=== PATIENT | female | born 1975 | race Caucasian/White ===

== ENCOUNTER 2022-12-10 16:20 | Emergency (ER) | payer SELFPAY ==
--- OUTSIDE RECORDS SUMMARY | 2022-12-10 16:23 | XMS REPORT | Continuity of Care Document ---
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 mmol/L 136.0-145.0 N Potassium,K (test code = K) 3.6 mmol/L 3.0-5.1 N Chloride (test code = CL) 110 mmol/L 98-107 H Carbon Dioxide (test code = CO2) 25 mmol/L 20-31 N Anion Gap (test code = GAP) 7 mmol/L 5-15 N Blood Urea Nitrogen (test code = 12 mg/dL 9-23 N BUN) Creatinine (test code = CREATT) 0.87 mg/dL 0.55-1.02 N Creatinine Clr Calc Pharmacy 92.23 mL/min (test code = CRCLPHA) Estimated GFR ( Vanessa > 60 mL/min/1.73m2 (test code = EGFRAA) Estimated GFR (Non Afr Vanessa > 60 mL/min/1.73m2 (test code = EGFRNAA) BUN/Creatinine Ratio (test code 14 ratio 10-20 N = BCRATIO) Glucose (test code = GLU) 108 mg/dL 74-106 H Osmolality,Calculated (test code 294.2 = OSMOC) Calcium (test code = CA) 9.0 mg/dL 8.3-10.6 N Bilirubin,Total (test code = 0.4 mg/dL 0.2-1.1 N BILIT) Aspartate Amino Transferase 75 U/L 0-34 H (test code = AST) Alanine Aminotransferase (test 61 U/L 10-49 H code = ALT) Total Protein (test code = TP) 8.7 g/dL 5.7-8.2 H Albumin Level (test code = ALB) 5.4 g/dL 3.2-4.8 H Globulin (test code = GLOB) 3.3 mg/dL 2.3-3.5 N Albumin/Globulin Ratio (test 1.6 ratio 0.8-2.0 N code = AGRATIO) Alkaline Phosphatase (test code 68 U/L 46-116 N = ALP) Ethanol [id number] 21:06:00 Test Item Value Reference Range Interpretation Comments Ethanol (test code 160 mg/dL The pharm acological = ETOH) response to blo od alcohol levels mayvary from individual to i ndividual. The fatal vimal ntrationhas been reported t o be >400mg/dL. Sars-CoV-2/FLU A/B RSV [id number] 21:06:00 Test Item Value Reference Range Interpretation Comments Sars-CoV-2/FLU A/B For use under Emergency RSV PCR (test code = Use Authorization (EUA) SARSFLURSVPCR) only. Sars-CoV-2/FLU A/B Reference Range: RSV PCR (test code = Negative SARSFLURSVPCR1.1) Influenza A PCR: Negative by Nucleic Acid (test code = Amplification Influenza A PCR:) Influenza B PCR: Negative by Nucleic Acid (test code = Amplification Influenza B PCR:) RSV PCR Result: (test Negative by Nucleic Acid code = RSV PCR Amplification Result:) SARS-CoV-2 PCR Negative by RT-PCR Result: (test code = SARS-CoV-2 PCR Result:) Complete Blood Count Auto [id number] 21:06:00 Test Item Value Reference Range Interpretation Comments White Blood Count (test code = 5.4 x10 3/uL 4.4-10.5 N WBCT) Red Blood Count (test code = 5.05 x10 6/uL 3.75-5.20 N RBC) Hemoglobin (test code = HGBT) 15.8 g/dL 12.2-14.8 H Hematocrit (test code = HCTT) 48.6 % 36.5-44.4 H Mean Corpuscular Volume (test 96.20 fL 80.00-100.00 N code = MCV) Mean Corpuscular Hemoglobin 31.3 pg 27.0-32.5 N (test code = MCH) Mean Corpuscular HGB Conc 32.50 g/dL 32.00-37.50 N (test code = MCHC) RDW Coefficient of Variation 15.9 % 11.5-14.5 H (test code = RDWCV) Platelet Count (test code = 178.0 x10 3/uL 140.0-440.0 N PLTT) Mean Platelet Volume (test 9.4 fL code = MPV) Immature Granulocytes % (Auto) 0.2 % 0.0-5.0 N (test code = IMMGRAN%) Neutrophils % (Auto) (test 63.7 % 36.0-70.0 N code = NE%) Lymphocytes % (Auto) (test 24.4 % 12.0-44.0 N code = LY%) Monocytes % (Auto) (test code 7.5 % 0.0-11.0 N = MO%) Eosinophils % (Auto) (test 3.3 % 0.0-7.0 N code = EO%) Basophils % (Auto) (test code 0.9 % 0.0-2.0 N = BA%) Immature Granulocytes # (Auto) 0.01 x10 3/uL (test code = IMMGRAN#) Neutrophils # (Auto) (test 3.5 x10 3/uL 1.6-7.4 N code = NE#) Lymphocytes # (Auto) (test 1.33 x10 3/uL 0.50-4.60 N code = LY#) Monocytes # (Auto) (test code 0.41 x10 3/uL 0.00-1.20 N = MO#) Eosinophils # (Auto) (test 0.18 x10 3/uL 0.00-0.74 N code = EO#) Basophils # (Auto) (test code 0.05 x10 3/uL 0.00-0.21 N = BA#) nRBC Abs (test code = NRBCA) 0 nRBC Pct (test code = NRBCP) 0 % SARS-CoV-2 (COVID-19) RNA [Presence] in Respiratory specimen by CHEMO with probe [id number] 20:33:59 Test Item Value Reference Range Interpretation Comments SARS-CoV-2 (COVID-19) RNA Not detected Not-Detected [Presence] in Respiratory specimen by CHEMO with probe detection (test code = 92201-4) Whether patient is employed in a healthcare setting (test code = 59533-2) Whether the patient has symptoms related to condition of interest (test code = 79798-0) Patient was hospitalized because of this condition (test code = 70712-1) Whether the patient was admitted to intensive care unit (ICU) for condition of interest (test code = 24736-2) Whether patient resides in a congregate care setting (test code = 14712-5) [facility] coronavirus 2 RNA [Presence] in Respiratory specimen by CHEMO with probe [id number] 03:54:38 Test Item Value Reference Range Interpretation Comments SARS coronavirus 2 RNA Not detected Not-Detected [Presence] in Respiratory specimen by CHEMO with probe detection (test code = 05873-2) [facility]
--- NOTE | 2022-12-10 17:32 | RAD REPORT ---
EXAM DESCRIPTION: RAD - Tib Fib Left - 12/10/2022 5:26 pm CLINICAL HISTORY: open wound Pain and swelling COMPARISON: No comparisons FINDINGS: No fracture, dislocation or evidence of osteomyelitis. No soft tissue gas is seen.
[2022-12-10] MEDS ORDERED: HYDROCODONE/APAP 7.5/325 MG TAB ONE (17:51)
[2022-12-10] MEDS ORDERED: IBUPROFEN 400 MG TAB ONE (17:51)
[2022-12-10] MEDS ORDERED: LIDOCAINE 1% W/EPI 1:100,000 30 ML VIAL ONE (18:45)
[2022-12-10] MEDS ORDERED: BUPIVACAINE 0.5% PF 10 ML VIAL ONE (18:45)
[2022-12-10] MEDS ORDERED: LIDOCAINE HCL JELLY 2% 6 ML SYRINGE TOP ONE (18:46)
--- NOTE | 2022-12-10 19:37 | ER ---
Nurse's Notes [facility] Name: Letty Sosa Age: 47 yrs Sex: Female : 1975 Arrival Date: 12/10/2022 Time: 16:22 Bed 18 Private MD: Diagnosis: Unspecified open wound, left lower leg;Local infection of the skin and subcutaneous tissue, unspecified-left lower leg Presentation: 12/10 16:31 Chief complaint: Patient states: "I have a wound on my left leg. Went to the hospital a mb9 month ago and got started on antibiotics and not on them anymore. Yesterday it started having an order and it hurts really bad". Coronavirus screen: Vaccine status: Patient reports receiving the 2nd dose of the covid vaccine. Ebola Screen: No symptoms or risks identified at this time. Initial Sepsis Screen: Does the patient meet any 2 criteria? No. Patient's initial sepsis screen is negative. Does the patient have a suspected source of infection? Yes: Skin breakdown/wound. Risk Assessment: Do you want to hurt yourself or someone else? Patient reports no desire to harm self or others. Onset of symptoms was November 12, 2022. 16:31 Method Of Arrival: Ambulatory mb9 16:31 Acuity: EMY 3 mb9 Triage Assessment: 16:38 General: Appears in no apparent distress. Behavior is calm, cooperative, appropriate mb9 for age. Pain: Complains of pain in left leg. Cardiovascular: Patient's skin is warm and dry. Respiratory: Airway is patent Respiratory effort is even, unlabored, Respiratory pattern is regular, symmetrical. Derm: Wound noted left vazquez Wound is foul odor, red and swollen. Musculoskeletal: Range of motion: intact in all extremities. Historical: - Allergies: 16:33 Benadryl; mb9 - Home Meds: 16:33 Abilify oral [Active]; sertraline oral [Active]; topiramate oral [Active]; Buspirone mb9 Oral [Active]; - PMHx: 16:33 Anxiety; Depressive disorder; mb9 - PSHx: 16:33 section; mb9 - Immunization history:: Adult Immunizations up to date. - Social history:: Smoking status: Patient reports the use of cigarette tobacco products, smokes one pack cigarettes per day. Screenin:[facility] ED Fall Risk Assessment (Adult) History of falling in the last 3 months, kc6 including since admission No falls in past 3 months (0 pts) Confusion or Disorientation No (0 pts) Intoxicated or Sedated No (0 pts) Impaired Gait No (0 pts) Mobility Assist Device Used No (0 pt) Altered Elimination No (0 pt) Score/Fall Risk Level 0 - 2 = Low Risk Oriented to surroundings, Maintained a safe environment, Educated pt \\T\\ family on fall prevention, incl call for assistance when getting out of bed, Assessed \\T\\ reinforced patient's understanding of fall precautions, Hourly rounding (assess needs \\T\\ fall precautionary measures) done. Abuse screen: Denies threats or abuse. Denies injuries from another. Nutritional screening: No deficits noted. Tuberculosis screening: No symptoms or risk factors identified. Assessment: 17:56 General: Appears in no apparent distress. comfortable, Behavior is calm, cooperative, kc6 appropriate for age. Neuro: Rayo Agitation-Sedation Scale (RASS): 0 - Alert and Calm Level of Consciousness is awake, alert, obeys commands, Oriented to person, place, time, situation, Appropriate for age. Cardiovascular: Capillary refill < 3 seconds. Respiratory: Airway is patent Trachea midline Respiratory effort is even, unlabored, Respiratory pattern is regular, symmetrical. GI: No signs and/or symptoms were reported involving the gastrointestinal system. : No signs and/or symptoms were reported regarding the genitourinary system. EENT: No signs and/or symptoms were reported regarding the EENT system. Derm: Skin is pink, warm \\T\\ dry. Wound noted left leg Wound is appears to be open with black scabbing. erythema and some swelling appears to be present. no drainage. Musculoskeletal: No signs and/or symptoms reported regarding the musculoskeletal system. Circulation, motion, and sensation intact. Capillary refill < 3 seconds, Range of motion: intact in all extremities. 18:50 Reassessment: Patient appears in no apparent distress at this time. No changes from kc6 previously documented assessment. Patient and/or family updated on plan of care and expected duration. Pain level reassessed. Patient is alert, oriented x 3, equal unlabored respirations, skin warm/dry/pink. Vital Signs: 16:31 BP 136 / 106; Pulse 79; Resp 18; Temp 98.1; Pulse Ox 100% ; Weight 70.76 kg; Height 5 mb9 ft. 11 in. ; Pain 6/10; 17:58 BP 136 / 76; Pulse 71; Resp 18 S; Pulse Ox 99% on R/A; kc6 18:51 BP 125 / 79; Pulse 74; Resp 18 S; Pulse Ox 100% on R/A; kc6 16:31 Body Mass Index 21.76 (70.76 kg, 180.34 cm) mb9 16:31 Pain Scale: Adult mb9 ED Course: 16:22 Patient arrived in ED. rg4 16:24 Bipin Chahal PA is PHCP. jmm 16:24 Blake Chin MD is Attending Physician. m 16:25 PHCP role handed off by Bipin Chahal PA cp 16:25 Mario Arce PA is PHCP. cp 16:33 Triage completed. mb9 16:37 Arm band placed on. mb9 17:28 XRAY Tib Fib LEFT In Process Unspecified. EDMS 17:45 Bhumi Mota, JOSE C is Primary Nurse. kc6 17:56 Wound Culture Sent. kc6 17:58 Patient has correct armband on for positive identification. Bed in low position. Call kc6 light in reach. Side rails up X 1. Administered Medications: 17:56 Drug: Ibuprofen PO 800 mg Route: PO; kc6 18:45 Follow up: Response: No adverse reaction kc6 17:56 Drug: Hydrocodone-Acetaminophen PO (7.5 mg-325 mg) 1 tabs Route: PO; kc6 18:45 Follow up: Response: No adverse reaction; Pain is decreased; RASS: Alert and Calm (0) kc6 18:45 Drug: Lidocaine Mucous Membrane Gel 2 % 1 ea Volume: 15 ml; Route: Mucous Membrane; kc6 19:12 Drug: Lidocaine-Epinephrine Infiltration -1%: (1:100,000) 10 ml {Note: Administered by jb4 ER provider.} Volume: 20 ml; Route: Infiltration; 19:12 Drug: Bupivacaine Infiltration (0.5 %) 10 ml {Note: Administered by ER provider.} jb4 Volume: 10 ml; Route: Infiltration; Outcome: 19:37 Discharge ordered by . cp Signatures: Dispatcher [employer] EDMS Bipin Chahal PA PA jmm Page, Corey, PA PA cp Laith, Sabra rg4 Erickson Stratton RN RN jb4 Bhumi Mota RN RN kc6 Lizzie Tao RN RN mb9 Corrections: (The following items were deleted from the chart) 16:37 16:33 [place] Meds: librium; mb9 mb9
--- NOTE | 2022-12-10 19:37 | EDPHYS ---
Physician Documentation [facility] Name: Letty Sosa Age: 47 yrs Sex: Female : 1975 Arrival Date: 12/10/2022 Time: 16:22 Bed 18 Private MD: ED Physician Blake Chin Historical: - Allergies: 12/10 16:33 Benadryl; mb9 - Home Meds: 16:33 Abilify oral [Active]; sertraline oral [Active]; topiramate oral [Active]; Buspirone mb9 Oral [Active]; - PMHx: 16:33 Anxiety; Depressive disorder; mb9 - PSHx: 16:33 section; mb9 - Immunization history:: Adult Immunizations up to date. - Social history:: Smoking status: Patient reports the use of cigarette tobacco products, smokes one pack cigarettes per day. Vital Signs: 16:31 BP 136 / 106; Pulse 79; Resp 18; Temp 98.1; Pulse Ox 100% ; Weight 70.76 kg; Height 5 mb9 ft. 11 in. ; Pain 6/10; 17:58 BP 136 / 76; Pulse 71; Resp 18 S; Pulse Ox 99% on R/A; kc6 18:51 BP 125 / 79; Pulse 74; Resp 18 S; Pulse Ox 100% on R/A; kc6 16:31 Body Mass Index 21.76 (70.76 kg, 180.34 cm) mb9 16:31 Pain Scale: Adult mb9 MDM: 16:39 Patient medically screened. 12/10 16:41 Order name: XRAY Tib Fib LEFT; Complete Time: 17:37 cp 12/10 17:37 Interpretation: Report reviewed. 12/10 16:41 Order name: Wound Culture 12/10 18:07 Order name: I\T\D Setup; Complete Time: 18:10 cp Administered Medications: 17:56 Drug: Ibuprofen PO 800 mg Route: PO; kc6 18:45 Follow up: Response: No adverse reaction [facility] 17:56 Drug: Hydrocodone-Acetaminophen PO (7.5 mg-325 mg) 1 tabs Route: PO; 6 18:45 Follow up: Response: No adverse reaction; Pain is decreased; RASS: Alert and Calm (0) kc6 18:45 Drug: Lidocaine Mucous Membrane Gel 2 % 1 ea Volume: 15 ml; Route: Mucous Membrane; kc6 19:12 Drug: Lidocaine-Epinephrine Infiltration -1%: (1:100,000) 10 ml {Note: Administered by jb4 ER provider.} Volume: 20 ml; Route: Infiltration; 19:12 Drug: Bupivacaine Infiltration (0.5 %) 10 ml {Note: Administered by ER provider.} jb4 Volume: 10 ml; Route: Infiltration; Disposition Summary: 12/10/22 19:37 Discharge Ordered Location: Home cp Problem: an ongoing problem cp Symptoms: have improved cp Condition: Stable cp Diagnosis - Unspecified open wound, left lower leg cp - Local infection of the skin and subcutaneous tissue, unspecified - left lower leg cp Forms: - Medication Reconciliation Form cp - Thank You Letter cp - Antibiotic Education cp - Prescription Opioid Use cp Signatures: Dispatcher [employer] EDMS Mario Arce PA PA cp Erickson Stratton RN RN jb4 Bhumi Mota RN RN kc6 Lizzie Tao RN RN mb9 Corrections: (The following items were deleted from the chart) 16:37 16:33 Home Meds: librium; mb9 mb9
[2022-12-10] MEDS ORDERED: DOXYCYCLINE 100 MG CAP PO ONE (19:49)
[2022-12-10] MEDS ORDERED: SMZ./TMP. 800/160 MG TABLET ONE (19:49)
[2022-12-11 03:32] VITALS: BP 136/106; TEMP 98.1; O2SAT 100
== END 2022-12-10 20:10 | disposition home or self-care (01) ==
LOC: ER 16:20
DX: S81.802A Unspecified open wound, left lower leg, initial encounter (principal); L08.9 Local infection of the skin and subcutaneous tissue, unspecified
CPT/HCPCS: 87070; 87205

== ENCOUNTER 2022-12-12 10:35 | Emergency (ER) | payer SELFPAY ==
--- OUTSIDE RECORDS SUMMARY | 2022-12-12 10:39 | XMS REPORT | Continuity of Care Document ---
:1975 Author Organization [facility] t Address [address] [place] [address] [address] [place] [address] Care Team Providers Name Role Phone Jorgito Moody DO Primary Care Physician [phone] Yanira Reddy RN Attending Clinician Unavailable Vane Angela DO Attending Clinician Jim RN, Glenda Attending Clinician Unavailable Maksim JONES, Anupam Attending Clinician Deidra JONES, Dede Livingston Attending Clinician Iam Berry MD, Tita Attending Clinician [phone] Tony JONES, Usha Brown Attending Clinician Vega JOENS, Charo Attending Clinician Ashish JONES, Larissa Matt Attending Clinician Lili JONES, Darrel Clancy Attending Clinician [phone] Saturnino JONES, Jennifer Attending Clinician Mannie Chavez DO Attending Clinician JORGITO ROBERTS Attending Clinician Unavailable DO VANE ANGELA Attending Clinician Unavailable VICENTE AN Attending Clinician Unavailable CHARO RUSSELL Attending Clinician Unavailable KATHY SELLERS Attending Clinician Unavailable ERNESTO WELCH Attending Clinician Unavailable IRLANDA JOHNSTON Attending Clinician Unavailable USHA JIMENEZ Admitting Clinician Unavailable LARISSA FRAZIER Admitting [...] Disease Active C [facility], [facility] Med[facility] l right right 00 Center Allergies, Adverse Reactions, Alerts Allergy Allergy Status Severity Reaction(s) Onset Inactive Treating Comm ents Source Name Type Date Date Clinician diphenhy DA Active U Unknown [facility]m dramine 10-27 00:00: 00 Diphenhy Propensi Active [...] Date Stop Date Source Natural brother Anesthesia [facility] Natural father [facility] Maternal grandfather Cancer [facility] Maternal grandmother Cancer [facility] Natural mother Cancer [facility] Paternal grandfather Cancer [facility] Social History Social Habit Start Date Stop Date Quantity Comments Source History of tobacco Cigarette Smoker [facility] use Hospital History [facility]aoism Alcohol Std Drinks Hospit al History [facility] Alcohol Binge Hospital Alcohol intake 2022-11-08 2022-11-08 Current drinker [facility] dist 00:00:00 00:00:00 of [facility] (finding) Tobacco use and 2022-06-24 2022-06-24 Smokeless tobacco [facility] exposure 00:00:00 00:00:00 non-user Hospital Cigarettes smoked 2022-06-24 2022-06-[address] current (pack per 00:00:00 00:00:00 Hospita l day) - Reported Cigarette 2022-06-24 2022-06-24 [facility] pack-years 00:00:00 00:00:00 Hospital Alcohol Comment 2019-07-31 2019-07-31 2 pints vodka per [facility] 00:00:00 00:00:00 day Hospital History SDOH 2018-09-13 2018-09-13 1 [facility] Alcohol Frequency 00:00:00 00:00:00 Hospita l Sex Ass[birth year] At [birth year] [facility] 00:00:00 00:00:00 Hospital Smoking Status Start Date Stop Date Source Smokes tobacco daily 2022-06-24 00:00:00 [facility] Medications Ordered Filled Start Stop Current Ordering Indication Dosage Frequency Signature Comments Components Source Medication Medication Date Date Medication? Clinician (SIG) Name Name traZODone 2022-0 3- No 50mg QD Take 1 Metho di (DESYREL) 11-10 tablet (50 st 50 MG 17:40: 00:00 mg total) Hospit a tablet 32 :00 by mouth l nightly as needed for sleep. traZODone 2022-0 2022- No 50mg QD Take 1 Metho di (DESYREL) 11-10 tablet (50 st 50 MG 17:40: 00:00 mg total) Hospit a tablet 32 :00 by mouth l nightly as needed for sleep. topiramate 2022-0 Yes 100mg Q.5D Take 1 Meth maryam (TOPAMAX) 2-[address] 100 MG 17:40: (100 mg Hospita tablet 28 total) by l mouth 2 (two) times a day. sertraline 2022-0 Yes 150mg QD Take 1.5 Me thodi (ZOLOFT) 2-[address] 100 MG 17:40: (150 mg Hospita tablet 28 total) by l mouth nightly. topiramate 2022-0 Yes 100mg Q.5D Take 1 Meth maryam (TOPAMAX) 2-[address] 100 MG 17:40: (100 mg Hospita tablet 28 total) by l mouth 2 (two) times a day. sertraline 2022-0 Yes 150mg QD Take 1.5 Me thodi (ZOLOFT) 2-[address] 100 MG 17:40: (150 mg Hospita tablet 28 total) by l mouth nightly. doxycycline 2022-0 3- No 100mg Q.5D Take 1 Me thodi (VIBRAMYCIN 2-13 -[address] ) 100 MG 00:00: 05:59 (100 mg Hospi ta capsule 00 :00 total) by l mouth 2 (two) times a day with meals for 10 days. doxycycline 2022-0 2023- No 100mg Q.5D Take 1 Me thodi (VIBRAMYCIN 2-13 -[address] ) 100 MG 00:00: 05:59 (100 mg Hospi ta capsule 00 :00 total) by l mouth 2 (two) times a day with meals for 10 days. HYDROcodone 3-0 2022- No [id number] 1{tbl} Q6H Take 1 Methodi -acetaminop 11-[address] hen ([facility]) 00:00: 05:59 mouth Hosp leida 5-325 mg 00 :00 every 6 l per tablet (six) hours as needed for moderate pain for up to 7 days .acute pain. Max Daily Amount: 4 tablets HYDROcodone 3-0 202- No [id number] 1{tbl} Q6H Take 1 Methodi -acetaminop 11-[address] hen ([facility]) 00:00: 05:59 mouth Hosp leida 5-325 mg 00 :00 every 6 l per tablet (six) hours as needed for moderate pain for up to 7 days .acute pain. Max Daily Amount: 4 tablets chlordiazeP 3-0 2022- No 10mg Q.[id number] Take 1 Methodi OXIDE 11-[id number] (LIBRIUM) 00:00: 05:59 3D (10 mg Hospi ta 10 MG 00 :00 total) by l capsule mouth 3 (three) times a day for 5 days. chlordiazeP 2023-0 2023- No 10mg Q.[id number] Take 1 Methodi OXIDE 11-[id number] (LIBRIUM) 00:00: 05:59 3D (10 mg Hospi ta 10 MG 00 :00 total) by l capsule mouth 3 (three) times a day for 5 days. ARIPiprazol 2023-0 2023- No 5mg QD Take 0.5 M ethodi e (ABILIFY) 11-08- tablets (5 s t 10 MG 00:54: 00:00 mg total) Hospit a tablet 19 :00 by mouth l daily. ARIPiprazol 2023-0 2023- No 5mg QD Take 0.5 M ethodi e (ABILIFY) 11-08 tablets (5 s t 10 MG 00:54: 00:00 mg total) Hospit a tablet 19 :00 by mouth l daily. gabapentin 2022- No 100mg Q.[id number] Take 100 Methodi (NEURONTIN) 11-[id number] 100 mg 00:48: 00:00 3D mouth 3 Hospita capsule 33 :00 (three) l times a day. gabapentin 2022- No 100mg Q.[id number] Take 100 Methodi (NEURONTIN) 11-[id number] 100 mg 00:48: 00:00 3D mouth 3 Hospita capsule 33 :00 (three) l times a day. nicotine 2021-09- No 1{patch QD Place 1 Me thodi (NICODERM 0-01 11- } patch on st CQ) 21 00:00: 04:59 the skin Hospit a mg/24 hr 00 :00 daily for l 30 days. nicotine 2021-09- No 1{patch QD Place 1 Me thodi (NICODERM 0-01 11- } patch on st CQ) 21 00:00: 04:59 the skin Hospit a mg/24 hr 00 :00 daily for l 30 days. nicotine 2021-09- No 1{patch QD Place 1 Me thodi (NICODERM 0-01 09-30 } patch on st CQ) 21 00:00: 00:00 the skin Hospit a mg/24 hr 00 :00 daily for l 30 days. nicotine 2021-09- No 1{patch QD Place 1 Me thodi (NICODERM 0-01 09-30 } patch on st CQ) 21 00:00: 00:00 the skin Hospit a mg/24 hr 00 :00 daily for l 30 days. chlordiazeP 2022- No 10 mg Meth maryam OXIDE 06-[address] (LIBRIUM) 00:00: 00:00 3 days tid H ospita 10 MG 00 :00 for 4 l capsule days, 10 mg bid for 4 days, 10 mg daily for 4 days chlordiazeP 2022- No 10 mg Meth maryam OXIDE 06-[address] (LIBRIUM) 00:00: 00:00 3 days tid H ospita 10 MG 00 :00 for 4 l capsule days, 10 mg bid for 4 days, 10 mg daily for 4 days thiamine 2021-0 2021- No 100mg QD Take 1 Metho di (vitamin 9-30 10-[address] B-1) 100 MG 00:00: 04:59 (100 mg Ho spita tablet 00 :00 total) by l mouth daily for 30 days. thiamine 2021-0 2021- No 100mg QD Take 1 Metho di (vitamin 9-27 07- tablet st B-1) 100 MG 00:00: 04:59 (100 mg Ho spita tablet 00 :00 total) by l mouth daily for 30 days. HYDROcodone 2021-2021- No [id number] 1{tbl} Q6H Take 1 Methodi -acetaminop 9- 10- tablet by st [place] ([place]) 00:00: 04:59 mouth Hosp leida 5-325 mg 00 :00 every 6 l per tablet (six) hours as needed for moderate pain for up to 5 days .acute pain. Max Daily Amount: 4 tablets HYDROcodone 2021-0 2021- No [id number] 1{tbl} Q6H Take 1 Methodi -acetaminop -27 07- tablet by st hen ([place]) 00:00: 04:59 mouth Hosp leida 5-325 mg 00 :00 every 6 l per tablet (six) hours as needed for moderate pain for up to 5 days .acute pain. Max Daily Amount: 4 tablets chlordiazeP 2021- No 10 mg Meth maryam OXIDE 06-27- daily for st (LIBRIUM) 00:00: 00:00 3 days tid H ospita 10 MG 00 :00 for 4 l capsule days, 10 mg bid for 4 days, 10 mg daily for 4 days thiamine 2021-2021- No 200mg Q.[id number] Infuse 2 Methodi (B-1) 100 06-27 [id number] mL ([address] mg/mL 00:00: 00:00 3D total) Hospita injection 00 :00 into a l venous catheter 3 (three) times a day for 30 days. chlordiazeP 2021-2021- No 10 mg Meth maryam OXIDE 06-27- daily for st (LIBRIUM) 00:00: 00:00 3 days tid H ospita 10 MG 00 :00 for 4 l capsule days, 10 mg bid for 4 days, 10 mg daily for 4 days thiamine 2021- No 200mg Q.[id number] Infuse 2 Methodi (B-1) 100 06-27 [id number] mL ([address] mg/mL 00:00: 00:00 3D total) Hospita injection 00 :00 into a l venous catheter 3 (three) times a day for 30 days. meclizine 2021- No 25mg Q.[id number] Take 1 Methodi (ANTIVERT) 06-14 [id number] tablet (25 st 25 mg 00:00: 04:59 3D mg total) Hospit a tablet 00 :00 by mouth 3 l (three) times a day as needed for dizziness for up to 30 days. cetirizine 2021- No 10mg QD Take 1 Meth maryam (ZyrTEC) 10 06-1418 tablet (10 s t MG tablet 00:00: 04:59 mg total) Ho spita 00 :00 by mouth l daily for 30 days. meclizine 2021- No 25mg Q.[id number] Take 1 Methodi (ANTIVERT) 06-14 [id number] tablet (25 st 25 mg 00:00: 04:59 3D mg total) Hospit a tablet 00 :00 by mouth 3 l (three) times a day as needed for dizziness for up to 30 days. cetirizine 2021- No 10mg QD Take 1 Meth maryam (ZyrTEC) 10 06-14-18 tablet (10 s t MG tablet 00:00: 04:59 mg total) Ho spita 00 :00 by mouth l daily for 30 days. albuterol 2022- No 1{inhal Q6H Inhale 1 Methodi sulfate 90 06-19 02-11 er} Inhaler st mcg/actuati 00:00: 00:00 every 6 Ho spita on aero 00 :00 (six) l powdr hours as breath act needed w/sensor (cough). albuterol 2022- No 1{inhal Q6H Inhale 1 [...] mcg blister with device powder for inhalation fluticasone 2022- No QD Inhale 1 M ethodi -umeclidin- 06-07 inhalation s t vilanter 00:00: 00:00 s daily. Hosp leida (TRELEGY 00 :00 l ELLIPTA) 100-62.5-25 mcg blister with device powder for inhalation DOXYCYCLINE 2022- No Metho di HYCLATE 06-04 st ORAL 00:00: 00:00 Hospita 00 :00 l DOXYCYCLINE 2020-0 2022- No Metho di HYCLATE 06-04 st ORAL 00:00: 00:00 Hospita 00 :00 l PREDNISONE 2020-0 2022- No Method i ORAL 05-30 st 00:00: 00:00 Hospita 00 :00 l PREDNISONE 2020-0 2022- No Method i ORAL 05-30 st 00:00: 00:00 Hospita 00 :00 l ondansetron 2022- No [id number] 1 tab to Methodi ODT (Zofran 05-[address] ODT) 4 MG 00:00: 00:00 on tongue Ho spita disintegrat 00 :00 - can use l ing tablet TID prn nausea/ vomiting. Generic permitted. ondansetron 2022- No [id number] 1 tab to Methodi ODT (Zofran 05-[address] ODT) 4 MG 00:00: 00:00 on tongue Ho spita disintegrat 00 :00 - can use l ing tablet TID prn nausea/ vomiting. Generic permitted. solriamfeto 2022- No Metho di L (Sunosi) 12-27 st 75 mg 00:00: 00:00 Hospita tablet 00 :00 l solriamfeto 0 2022- No Metho di L (Sunosi) 12-2711 st 75 mg 00:00: 00:00 Hospita tablet 00 :00 l sertraline Yes 150mg QD Take 150 [facility] [...] mg per 53 daily. Center tablet OXcarbazepi 2016- Yes 100mg QD Take [address] ne 4-05 [facility] (TRILEPTAL) 15:07: mouth Medic al 150 MG 53 daily. Center tablet sertraline Yes 150mg QD Take [address] (ZOLOFT) 4-05 [facility] 100 MG 15:07: mouth Medical tablet 53 daily. Center traZODone 2015- Yes 50mg QD Take [address] (DESYREL) 4-05 by mouth [facility] 50 MG 15:07: nightly. Medical tablet 53 Center OXcarbazepi 2016 Yes 150mg QD Take [address] ne 4-05 [facility] by [facility] (TRILEPTAL) 15:07: mouth Medic al 150 MG 53 nightly Center tablet 100 mg AM, 150 mg PM. methocarbam 2016- Yes 750mg Take [address] [...] al 150 MG 53 daily. Center tablet Immunizations Ordered Immunization Filled Immunization Date Status Commen ts Source Name Name Tdap 2022-11-07 Completed [facility] 00:00:00 [facility] Tdap 2022-11-07 Completed [facility]ism 00:00:00 [facility] PFIZER COVID-19 MRNA 2021-02-08 Completed Meth odist VACCINATION 00:00:00 [facility] PFIZER COVID-19 MRNA 2021-02-08 Completed Meth odist VACCINATION 00:00:00 [facility] PFIZER COVID-19 MRNA 2021-01-18 Completed Meth odist VACCINATION 00:00:00 [facility] PFIZER COVID-19 MRNA 2021-01-18 Completed Meth odist VACCINATION 00:00:00 Hospital Vital Signs Vital Name Observation Time Observation Value Comments Source Body temperature 2022-11-10 22:03:15 37.33 Shelli [facility] Respiratory rate 2022-11-10 22:03:15 20 /min [facility] Oxygen saturation in 2022-11-10 22:03:15 98 /min [facility] Arterial blood by Pulse oximetry Systolic blood 2022-11-10 22:03:15 128 mm[Hg] [facility] pressure Diastolic blood 2022-11-10 22:03:15 88 mm[Hg] [facility] pressure Heart rate 2022-11-10 22:03:15 90 /min [facility] Body weight 2022-11-09 10:46:37 74.3 kg [facility] BMI 2022-11-09 10:46:37 22.85 kg/m2 [facility] Body height 2022-11-08 06:36:43 180.3 cm [facility] Procedures Procedure Date / Time Performing Clinician Source Performed BASIC METABOLIC PANEL 2022-11-10 10:24:00 [facility] MAGNESIUM LEVEL 2022-11-10 10:24:00 [facility] ESTIMATED GFR 2022-11-10 10:24:00 [facility] METHICILLIN-RESISTANT 2022-11-08 17:57:00 Usha Jimenez [facility] STAPHYLOCOCCUS AUREUS (MRSA), CHEMO COVID-19 QUALITATIVE 2022-11-08 10:51:00 Anupam Schaeffer [facility] RT-PCR LACTIC ACID LEVEL, SEPSIS 2022-11-08 10:47:00 Brock Larson [facility] - NOW AND REPEAT 2X EVERY 3 HOURS CBC WITH PLATELET AND 2022-11-08 10:47:00 [facility] Chad-Tapia [facility] DIFFERENTIAL Tita LIPID PANEL 2022-11-08 10:47:00 Iam Bonilla-Regina [facility]ism [facility]aj Rivers THYROID STIMULATING 2022-11-08 10:47:00 [facility] H[facility] Tita COMPREHENSIVE METABOLIC 2022-11-08 10:47:00 [facility] Chad-[facility] PANEL Tita ESTIMATED GFR 2022-11-08 10:47:00 [facility] Chad-Regina Hoahaoism Ho spital Tita ECG 12-LEAD 2022-11-08 01:29:44 [facility] spital LACTIC ACID LEVEL, SEPSIS 2022-11-08 01:18:00 [facility] - NOW AND REPEAT 2X EVERY 3 HOURS CBC WITH PLATELET AND 2022-11-08 01:18:00 [facility] DIFFERENTIAL COMPREHENSIVE METABOLIC 2022-11-08 01:18:00 [facility] PANEL LIPASE LEVEL 2022-11-08 01:18:00 [facility] spital HCG QUALITATIVE, SERUM 2022-11-08 01:18:00 [facility] SCREEN ALCOHOL LEVEL, BLOOD 2022-11-08 01:18:00 [facility] ESTIMATED GFR 2022-11-08 01:18:00 [facility] spital XR TIBIA FIBULA 2 VW LEFT 2022-11-08 01:01:00 [facility] XR CHEST 1 VW PORTABLE 2022-11-08 01:01:[address] [facility] CT HEAD WO CONTRAST 2022-11-08 00:32:06 [facility] CT CERVICAL SPINE WO 2022-11-08 00:31:41 [facility] CONTRAST CT ABDOMEN PELVIS W 2022-11-08 00:30:53 [facility] CONTRAST ECG ED PRELIMINARY 2022-11-07 23:33:45 [facility] INTERPRETATION CBC WITH PLATELET AND 2022-11-07 23:12:00 [facility] DIFFERENTIAL PROTHROMBIN TIME WITH INR 2022-11-07 23:12:00 [facility] PARTIAL THROMBOPLASTIN 2022-11-07 23:12:00 [facility] TIME (PTT) COMPREHENSIVE METABOLIC 2022-11-07 23:12:00 [facility] Hospital PANEL MAGNESIUM LEVEL 2022-11-07 23:12:00 [facility] PHOSPHORUS LEVEL 2022-11-07 23:12:00 [facility] LACTIC ACID LEVEL, SEPSIS 2022-11-07 23:12:00 [facility] - NOW AND REPEAT 2X EVERY 3 HOURS LIPASE LEVEL 2022-11-07 23:12:00 [facility] URINALYSIS SCREEN AND 2022-11-07 23:12:00 [facility] MICROSCOPY, WITH REFLEX TO CULTURE HCG QUALITATIVE, URINE 2022-11-07 23:12:00 [facility] SCREEN SALICYLATE LEVEL 2022-11-07 23:12:00 [facility] ACETAMINOPHEN LEVEL 2022-11-07 23:12:00 [facility] URINE DRUGS OF ABUSE 2022-11-07 23:12:00 [facility] SCREEN ALCOHOL LEVEL, BLOOD 2022-11-07 23:12:00 [facility] ESTIMATED GFR 2022-11-07 23:12:00 [facility] CBC WITH PLATELET AND 2022-06-27 08:54:00 [facility] DIFFERENTIAL BASIC METABOLIC PANEL 2022-06-27 08:54:00 Ashish Larissa [facility] ESTIMATED GFR 2022-06-27 08:54:00 [facility] POTASSIUM LEVEL 2022-06-26 20:49:00 [facility] MAGNESIUM LEVEL 2022-06-26 20:49:00 [facility] ZZCOVID-19 ANTI-SPIKE IGG 2022-06-26 08:12:00 Vern Lira [facility] ANTIBODY TITER René CBC WITH PLATELET AND 2022-06-26 08:12:00 Ashish Larissa [facility] DIFFERENTIAL BASIC METABOLIC PANEL 2022-06-26 08:12:00 [facility] ZZCOVID-19 SEROLOGY 2022-06-26 08:12:00 Vern Lira [facility] PATIENT SURVEILLANCE René ESTIMATED GFR 2022-06-26 08:12:00 [facility] US HEPATIC 2022-06-25 23:38:00 [facility] ACUTE VIRAL HEPATITIS 2022-06-25 20:32:00 [facility] PANEL (HAV, HBV, HCV) PROTHROMBIN TIME WITH INR 2022-06-25 20:32:00 [facility] MAGNESIUM LEVEL 2022-06-25 20:32:00 [facility] CBC WITH PLATELET AND 2022-06-25 09:10:00 [facility] DIFFERENTIAL BASIC METABOLIC PANEL 2022-06-25 09:10:00 [facility] ESTIMATED GFR 2022-06-25 09:10:00 [facility] ospital URINE DRUGS OF ABUSE 2022-06-25 07:44:00 [facility] SCREEN URINALYSIS SCREEN AND 2022-06-25 07:44:00 [facility] MICROSCOPY, WITH REFLEX TO CULTURE COVID-19 QUALITATIVE 2022-06-25 01:25:00 [facility] RT-PCR CT MAXILLOFACIAL WO 2022-06-24 22:23:07 [facility] CONTRAST ECG ED PRELIMINARY 2022-06-24 21:34:12 [facility] INTERPRETATION CBC WITH PLATELET AND 2022-06-24 19:50:00 Sandro Childs [facility] DIFFERENTIAL COMPREHENSIVE METABOLIC 2022-06-24 19:50:00 Sandro Childs [facility] PANEL ALCOHOL LEVEL, BLOOD 2022-06-24 19:50:00 [facility] QUALITATIVE, SERUM 2022-06-24 19:50:00 [facility] SCREEN ESTIMATED GFR 2022-06-24 19:50:00 Sandro Childs Ho spital ECG 12-LEAD 2022-06-24 19:44:[address] sp[address] HEAD WO CONTRAST 2022-06-14 15:29:[address] [facility] [place] CBC WITH PLATELET AND 2022-06-14 14:56:00 Tanvir, Fernando [facility] DIFFERENTIAL [place] COMPREHENSIVE METABOLIC 2022-06-14 14:56:00 [facility]ernando [facility] PANEL [place] ESTIMATED GFR 2022-06-14 14:56:00 TanvirFernando H ospital [place] Plan of Care Planned Activity Planned Date Details Comments Source Future Scheduled 2022-11-19 Pneumococcal Vaccine: [facility] Test 03:38:36 Pediatrics (0 to 5 Years) and At-Risk Patients (6 to 64 Years) (1 - PCV) [code = Pneumococcal Vaccine: Pediatrics (0 to 5 Years) and At-Risk Patients (6 to 64 Years) (1 - PCV)] Future Scheduled 2022-11-19 Screening for [facility] Test 03:38:36 malignant neoplasm of cervix (procedure) [code = 363577602] Future Scheduled 2022-11-19 COVID-19 VACCINE (3 - [facility] Test 03:38:36 Booster for Pfizer series) [code = COVID-19 VACCINE (3 - Booster for Pfizer series)] Future Scheduled 2022-11-19 BREAST CANCER [facility] Test 03:38:36 SCREENING [code = BREAST CANCER SCREENING] Future Scheduled 2022-11-19 COLONOSCOPY SCREENING [facility] Test 03:38:36 [code = COLONOSCOPY SCREENING] Future Scheduled 2022-11-19 INFLUENZA VACCINE Method [facility] Test 03:38:36 [code = INFLUENZA VACCINE] Future Scheduled 2022-11-19 Pneumococcal Vaccine: [facility] Test 03:38:36 Pediatrics (0 to 5 Years) and At-Risk Patients (6 to 64 Years) (1 - PCV) [code = Pneumococcal Vaccine: Pediatrics (0 to 5 Years) and At-Risk Patients (6 to 64 Years) (1 - PCV)] Future Scheduled 2022-11-19 Screening for [facility] Test 03:38:36 malignant neoplasm of cervix (procedure) [code = 518238547] Future Scheduled 2022-11-19 COVID-19 VACCINE (3 - Me [facility] Test 03:38:36 Booster for Pfizer series) [code = COVID-19 VACCINE (3 - Booster for Pfizer series)] Future Scheduled 2022-11-19 BREAST CANCER [facility] Test 03:38:36 SCREENING [code = BREAST CANCER SCREENING] Future Scheduled 2022-11-19 COLONOSCOPY SCREENING [facility] Test 03:38:36 [code = COLONOSCOPY SCREENING] Future Scheduled 2022-11-19 INFLUENZA VACCINE Method [facility] Hospital Test 03:38:36 [code = INFLUENZA VACCINE] Encounters Start End Encounter Admission Attending Care Care Encounter Source Date/Time Date/Time Type Type Clinicians Facility Department ID 2021-10-27 Inpatient [facility] [id number] [facility] 20:57:00 98 2021-10-27 Inpatient [facility] [id number] [facility] 20:57:00 98 2022-11-28 2022-11-28 Outpatient [facility] [id number] Ashok 16:09:27 16:09:27 [id number] F Frandy 2022-11-26 2022-11-26 Outpatient [facility] [id number] Ashok 09:30:40 09:30:40 [id number] [address] [place] 2022 2022 Nurse Barry 1.2.840.1 [id number] Methodi 00:00:00 00:00:00 Triage Yanira [id number] 3.430.2.7 Hospit a .3.924840 l .8 2022 2022 Telephone Jai, 1.2.840.1 [id number] Methodi 00:00:00 00:00:00 Vane Aida [id number] 3.430.2.7 Hospit a .3.653671 l .8 2022 2022 Patient Jim, 1.2.840.1 [id number] Methodi 00:00:00 00:00:00 Outreach Glenda [id number] 3.430.2.7 Hospit a .3.947615 l .8 2022 2022 Nurse Barry, 1.2.840.1 [id number] Methodi 00:00:00 00:00:00 Triage Yanira [id number] 3.430.2.7 Hospit a .3.075736 l .8 2022 2022 Telephone Conradangeli, 1.2.840.1 [id number] Methodi 00:00:00 00:00:00 Vane Aida [id number] 3.430.2.7 Hospit a .3.757025 l .8 2022 2022 Patient Jim, 1.2.840.1 [id number] Methodi 00:00:00 00:00:00 Outreach Glenda [id number] 3.430.2.7 Hospit a .3.928728 l .8 2022-11-07 2022-11-[address] [facility] 1.2.840.1 [id number] Methodi 17:22:00 17:40:00 Encounter Dede Gay Miki [id number] [facility] Tita 3.430.2.7 Hospita Usha Jimenez3.748624 l .8 2022-11-07 2022-11-[address] [facility] 1.2.840.1 [id number] Methodi 17:22:00 17:40:00 Encounter Dede Gay Miki [id number] [facility] 3.430.2.7 Hospita Usha Jimenez3.175651 l .8 2022-11-07 2022-11-07 Emergency 1.2.840.1 [id number] Methodi 15:16:00 15:17:[id number] 3.430.2.7 Hospit a .3.584829 l .8 2022-11-07 2022-11-07 Emergency 1.2.840.1 [id number] Methodi 15:16:00 15:17:[address] 3.430.2.7 Hospit a .3.458762 l .8 2022-06-24 2022-06-27 [facility] 1.2.840.1 10 [id number] Methodi 13:40:00 14:27:00 Encounter Sulaiman Fraziersabino Matt 80710.1.1 2 66 [facility] 3.430.2.7 [facility], Jennifer .3.489657 l .8 2022-06-24 2022-06-27 [facility] 1.2.840.1 10 [id number] Methodi 13:40:00 14:27:00 Encounter Ashish Larissa E. 80904.1.1 2 66 [facility] Aston 3.430.2.7 [facility], Jennifer .3.607922 l .8 2022-06-14 2022-06-14 Emergency [place], 1.2.840.1 [id number] 2099 [id number] Methodi 09:01:00 11:53:00 Mannie Willis 40256.1.[address] 3.430.2.7 Hospit a .3.723000 l .8 2022-06-14 2022-06-14 Emergency [place], 1.2.840.1 [id number] 2099 [id number] Methodi 09:01:00 11:53:00 Mannie Willis 25408.1.[address] 3.430.2.7 Hospit a .3.530826 l .8 2022-06-14 2022-06-14 Travel 1.2.840.1 1.2.730.644 0790 [id number] Methodi 00:00:00 00:00:[address] 3.430.2.7 0.2.7.3.698 Ho spita .3.190157 084.8 l .8 2022-06-14 2022-06-14 Travel 1.2.840.1 1.2.766.675 7330 [id number] Methodi 00:00:00 00:00:[address] 3.430.2.7 0.2.7.3.698 Ho spita .3.689278 084.8 l .8 2021-10-23 2021-10-23 Emergency ROBERTS, [facility] 064 [id number] [place] 00:00:00 00:00:00 JORGITO 770 Method i 2021-08-28 2021-08-28 Outpatient JAI, [facility] [id number] [place] 00:00:00 00:00:00 VANE 360 Method i 2021-08-28 2021-08-28 Outpatient CRISPINVICKI, [facility] [id number] [place] 00:00:00 00:00:00 VANE 233 Method i 2021-06-21 2021-06-21 Outpatient CONRADNI, [facility] [id number] [place] 00:00:00 00:00:00 VANE 746 Method i 2021-06-07 2021-06-07 Outpatient JAI, [facility] [id number] [place] 00:00:00 00:00:00 VANE 472 Method i 2021-06-07 2021-06-07 Outpatient JAI, [facility] [id number] [place] 00:00:00 00:00:00 VANE 088 Method i 2021-05-27 2021-05-27 Outpatient AN, [facility] [id number] [place] 00:00:00 00:00:00 DON 450 Method i 2021-02-08 2021-02-08 Outpatient DELILAHFiona, [facility] [id number] [place] 00:00:00 00:00:00 CHARO 978 Me thodi 2021-01-18 2021-01-18 Outpatient [facility] [id number] [place] 00:00:00 00:00:00 418 Method i 2020-11-16 2020-11-16 Outpatient KATHY SELLERS [facility] [id number] [place] 00:00:00 00:00:[address] 2020-11-16 2020-11-16 Outpatient KATHY SELLERS [facility] [id number] [place] 00:00:00 00:00:[address] 2020-10-02 2020-10-02 Outpatient YURI [facility] [id number] [place] 00:00:00 00:00:00 ERNESTO [address] 2020-09-14 2020-09-14 Outpatient JAI, [facility] [id number] [place] 00:00:00 00:00:00 VANE [address] 2020-09-14 2020-09-14 Outpatient [facility] [id number] [place] 00:00:00 00:00:[address] 2020-07-23 2020-07-23 Outpatient [facility] [id number] [place] 00:00:00 00:00:[address] 2020-04-25 2020-04-25 Outpatient JOHNSTON, [facility] [id number] [place] 00:00:00 00:00:00 IRLANDA [address] 2020-03-29 2020-03-29 Outpatient JAI [facility] [id number] [place] 00:00:00 00:00:00 VANE [address] 2020-03-27 2020-03-27 Outpatient JAI [facility] [id number] [place] 00:00:00 00:00:00 VANE [address] 2019-11-28 2019-11-28 Outpatient JAI, [facility] [id number] [place] 00:00:00 00:00:00 VANE [address] 2019-07-31 2019-08-[address] [facility] 064 [id number] [place] 00:00:00 00:00:[address] Results Test Description Test Time Test Comments Results Result Comments Source ECG 12 lead 2022-11-11 02:35:02 Test Item Value Reference Range Interpretation Comme nts Ventricular rate (test code = 253) 88 Atrial rate (test code = 255) 88 IA interval (test code = 266) 162 QRSD [...] of 24-JUN-2022 14:44,-No significant change was found- [facility] 12 [id number] 02:35:02 Test Item Value Reference Range Interpretation Comments Ventricular rate (test 88 code = 253) Atrial rate (test code 88 = 255) IA interval (test code 162 = 266) QRSD interval (test 98 code = 260) QT interval (test code 370 = 264) QTC interval (test code 447 = 265) P axis 1 (test code = 77 267) QRS axis 1 (test code = 49 268) T wave axis (test code 61 = 270) EKG impression (test Normal sinus code = 273) rhythm-Normal ECG-In automated comparison with ECG of 24-JUN-2022 14:44,-No significant change was found- [facility] [Presence] in Respiratory specimen by CHEMO with probe [id number] 02:21:27 Test Item Value Reference Range Interpretation Comments SARS-CoV-2 (COVID-19) RNA Not detected [Presence] in Respiratory specimen by CHEMO with probe detection (test code = 35680-0) Whether patient is employed in a Unknown healthcare setting (test code = 13915-5) Whether the patient has symptoms Unknown related to condition of interest (test code = 53934-1) Whether the patient was Unknown hospitalized for condition of interest (test code = 79330-7) Whether the patient was admitted Unknown to intensive care unit (ICU) for condition of interest (test code = 67564-2) Whether patient resides in a Unknown congregate care setting (test code = 18184-7) status (test code = Unknown 09566-0) Date and time of symptom onset Unknown (test code = 00783-4) [facility] [id number] 21:06:00 Test Item Value Reference Range Interpretation Comments Color,Urine (test code = Yellow Yellow UCOL) Clarity,Urine (test code = Clear Clear UCLAR) PH,Urine (test code = 5.0 5.5-8.5 A UPH.XX) Specific [place],Urine 1.025 1.005-1.030 N (test code = USG) [...] (test code = HCGU) Negative Negative Drug Screen,[id number] 21:06:00 Test Item Value Reference Range Interpretation [...] Negative Negative code = UPROP) Comprehensive Metabolic [id number] 21:06:00 Test Item Value Reference Range Interpretation [...] 68 U/L 46-116 N = ALP) Ethanol [id number] 21:06:00 Test Item Value Reference Range Interpretation Comments Ethanol (test code 160 mg/dL The pharm acological = ETOH) response to blo od alcohol levels mayvary from individual to i ndividual. The fatal vimal ntrationhas been reported t o be >400mg/dL. Sars-CoV-2/FLU A/B RSV [id number] 21:06:00 Test Item Value Reference Range Interpretation [...] SARS-CoV-2 PCR Result:) Complete Blood Count Auto [id number] 21:06:00 Test Item Value Reference Range Interpretation [...] in Respiratory specimen by CHEMO with probe [id number] 20:33:59 Test Item Value Reference Range Interpretation Comments SARS-CoV-2 (COVID-19) RNA Not detected Not-Detected [Presence] in Respiratory specimen by CHEMO with probe detection (test code = 14317-7) Whether patient is employed in a healthcare setting (test code = 76902-2) Whether the patient has symptoms related to condition of interest (test code = 82782-2) Patient was hospitalized because of this condition (test code = 09530-5) Whether the patient was admitted to intensive care unit (ICU) for condition of interest (test code = 22939-3) Whether patient resides in a congregate care setting (test code = 95228-6) [facility] [Presence] in Respiratory specimen by CHEMO with probe [id number] 03:54:38 Test Item Value Reference Range Interpretation Comments SARS coronavirus 2 RNA Not detected Not-Detected [Presence] in Respiratory specimen by CHEMO with probe detection (test code = 31664-1) [facility]
--- NOTE | 2022-12-12 10:48 | EDPHYS ---
Physician Documentation [facility] Name: Letty Sosa Age: 47 yrs Sex: Female : 1975 Arrival Date: 12/12/2022 Time: 10:39 Bed Waiting Private MD: ED Physician Jean-Paul Chamorro Historical: - Allergies: 12/12 10:43 Benadryl; hb - PMHx: 10:43 Anxiety; depressive disorder; hb - PSHx: 10:43 section; hb - Immunization history:: Adult Immunizations up to date. - Social history:: Smoking status: Patient denies any tobacco usage or history of. Vital Signs: 10:42 BP 150 / 97; Pulse 92; Resp 16; Temp 97.8; Pulse Ox 100% on R/A; hb MDM: 10:42 Patient medically screened. kb 10:46 Data reviewed: vital signs, nurses notes. kb Administered Medications: No medications were administered Disposition Summary: 12/12/22 10:48 Discharge Ordered Location: Home kb Condition: Stable kb Diagnosis - Local infection of the skin and subcutaneous tissue, unspecified kb - Leg Laceration/ Open wound of lower leg kb Followup: kb - With: Emergency Department - When: As needed - Reason: Worsening of condition Followup: kb - With: Private Physician - When: 2 - 3 days - Reason: Recheck today's complaints, Continuance of care, Re-evaluation by your physician Discharge Instructions: - Discharge Summary Sheet kb - Skin Abscess, Gvew-pg-Elvp kb - Wound Infection, Pdbe-jh-Phaz kb Forms: - Medication Reconciliation Form kb - Thank You Letter kb - Antibiotic Education kb - Prescription Opioid Use kb Signatures: Lor Narayanan FNP-C [employer]-Ishanb Cherie Garcia, RN RN
--- NOTE | 2022-12-12 10:48 | ER ---
Nurse's Notes [facility] Name: Letty Sosa Age: 47 yrs Sex: Female : 1975 Arrival Date: 12/12/2022 Time: 10:39 Bed Waiting Private MD: Diagnosis: Local infection of the skin and subcutaneous tissue, unspecified;Leg Laceration/ Open wound of lower leg Presentation: 12/12 10:42 Chief complaint: Has wound on left vazquez, needs packing changed. Coronavirus screen: At hb this time, the client does not indicate any symptoms associated with coronavirus-19. Ebola Screen: No symptoms or risks identified at this time. Initial Sepsis Screen: Does the patient meet any 2 criteria? No. Patient's initial sepsis screen is negative. Does the patient have a suspected source of infection? No. Patient's initial sepsis screen is negative. Risk Assessment: Do you want to hurt yourself or someone else? Patient reports no desire to harm self or others. Onset of symptoms was December 12, 2022. 10:42 Method Of Arrival: Ambulatory hb 10:42 Acuity: EMY 4 hb Triage Assessment: 10:43 General: Appears in no apparent distress. Behavior is calm, cooperative. Pain: Pain hb currently is 3 out of 10 on a pain scale. Neuro: Level of Consciousness is awake, alert, obeys commands, Oriented to person, place, time, situation. Cardiovascular: Patient's skin is warm and dry. Respiratory: Respiratory effort is even, unlabored, Respiratory pattern is regular, symmetrical. Historical: - Allergies: 10:43 Benadryl; hb - PMHx: 10:43 Anxiety; depressive disorder; hb - PSHx: 10:43 section; hb - Immunization history:: Adult Immunizations up to date. - Social history:: Smoking status: Patient denies any tobacco usage or history of. Screenin:44 [facility] ED Fall Risk Assessment (Adult) Score/Fall Risk Level 0 - 2 = Low Risk hb Oriented to surroundings, Maintained a safe environment. Abuse screen: Denies threats or abuse. Denies injuries from another. Nutritional screening: No deficits noted. Tuberculosis screening: No symptoms or risk factors identified. Assessment: 10:44 General: See triage assessment. hb Vital Signs: 10:42 BP 150 / 97; Pulse 92; Resp 16; Temp 97.8; Pulse Ox 100% on R/A; hb ED Course: 10:39 Patient arrived in ED. mr 10:41 Lor Narayanan FNP-C is [facility]. kb 10:41 Jean-Paul Chamorro MD is Attending Physician. kb 10:43 Triage completed. hb 10:43 Arm band placed on. hb 10:44 Patient has correct armband on for positive identification. hb 10:44 No provider procedures requiring assistance completed. Patient did not have IV access hb during this emergency room visit. Administered Medications: No medications were administered Medication: 10:44 VIS not applicable for this client. hb Outcome: 10:48 Discharge ordered by . kb Signatures: Lor Narayanan FNP-C FNP-Ckb Rivera, Mary Cherie Garcia, RN RN hb
== END 2022-12-12 10:49 | disposition home or self-care (01) ==
LOC: ER 10:35
DX: L08.9 Local infection of the skin and subcutaneous tissue, unspecified (principal); S81.802A Unspecified open wound, left lower leg, initial encounter
CPT/HCPCS: 99281